=== PATIENT | female | born 1990 | race Hispanic/Latino ===

== ENCOUNTER 2019-03-20 05:15 | Emergency (ER) | payer OTHER ==
[~2019-03-20] VITALS: Ht 157.5 cm; Wt 75.9 kg
[2019-03-20 05:15] VITALS: BP 134/95
[2019-03-20] MEDS ORDERED: PROV2.5T PO (05:26)
[2019-03-20] MEDS ORDERED: METF-839 PO (05:26)
[2019-03-20 06:18] LABS: HEMATOCRIT 45.3 % (36.0-47.0); HEMOGLOBIN 15.3 g/dl (12.0-15.5); MEAN CORPUSCULAR HEMOGLOBIN 29.1 pg (27.0-33.0); MEAN CORPUSCULAR HGB CONC 33.8 g/dl (32.0-36.5); MEAN CORPUSCULAR VOLUME 86.3 fl (80.0-96.0); PLATELET COUNT, AUTOMATED 355 10^3/uL (150-450); RED BLOOD COUNT 5.25 10^6/uL (4.00-5.40); WHITE BLOOD COUNT 11.6 10^3/uL (4.0-10.0)
[2019-03-20 06:36] LABS: EOSINOPHILS 3 % (0-5); LYMPHOCYTES 53 % (16-52); MONOCYTES 2 % (0-8); NEUTROPHILS 40 % (35-75)
[2019-03-20 06:37] LABS: PLATELET CLUMPS SMALL AMT; PLATELET ESTIMATE NORMAL (NORMAL)
[2019-03-20 06:59] LABS: ALBUMIN 3.6 GM/DL (3.2-5.2); ALT/SGPT 72 U/L (12-78); BILIRUBIN,DIRECT < 0.1 MG/DL (0.0-0.2); BILIRUBIN,TOTAL 0.2 MG/DL (0.2-1.0); LIPASE 117 U/L (73-393); TOTAL PROTEIN 8.7 GM/DL (6.4-8.2)
[2019-03-20] MEDS ORDERED: ONDANSETRON 4MG/2ML VIAL (J2405) IV PRN (07:15)
[2019-03-20] MEDS ORDERED: NS 1,000 ML IV ONE (07:15)
[2019-03-20] MEDS ORDERED: KETOROLAC 30 MG/ML VIAL (J1885) IV ONE (07:15)
[2019-03-20 07:27] LABS: AMYLASE 91 U/L (25-115)
[2019-03-20] MEDS ORDERED: CLIN150C14 PO (07:27)
[2019-03-20] MEDS ORDERED: ZOFR4TAB16 PO (07:27)
[2019-03-20] MEDS ORDERED: DICY1CAP8 PO (07:27)
[2019-03-20] MEDS ORDERED: CLINDAMYCIN 150 MG CAP PO ONE (09:30)
== END 2019-03-20 09:32 | disposition home or self-care (01) ==
LOC: M ED 05:15
DX: T81.40XA Infection following a procedure, unspecified, initial encounter (principal); Y74.8 Miscellaneous general hospital and personal-use devices associated with adverse incidents, not elsewhere classified; G89.18 Other acute postprocedural pain; R11.2 Nausea with vomiting, unspecified; R19.7 Diarrhea, unspecified; Z98.818 Other dental procedure status; Z79.899 Other long term (current) drug therapy; Z79.84 Long term (current) use of oral hypoglycemic drugs
CPT/HCPCS: 36415; 80076; 81001; 82150; 83690; 84702; 85025; 96374; 96375; 99284; J1885; J2405